=== PATIENT | male | born 1970 | race Caucasian/White ===

== ENCOUNTER 2018-08-13 17:55 | Emergency (ER) | payer OTHER ==
[~2018-08-13] VITALS: Ht 177.8 cm; Wt 79.4 kg
[2018-08-13] MEDS ORDERED: LIPITOR20 MG (18:09)
== END 2018-08-13 18:37 | disposition home or self-care (01) ==
LOC: ER 17:55
DX: S05.12XA Contusion of eyeball and orbital tissues, left eye, initial encounter (principal); H57.12 Ocular pain, left eye; W22.8XXA Striking against or struck by other objects, initial encounter; Y93.89 Activity, other specified; Y92.89 Other specified places as the place of occurrence of the external cause; Y99.8 Other external cause status